=== PATIENT | female | born 1995 | race Caucasian/White ===

== ENCOUNTER 2020-06-29 07:47 | Inpatient (IN) | payer OTHER ==
[~2020-06-29] VITALS: Ht 165.1 cm; Wt 83.9 kg
--- NOTE | 2020-06-29 08:00 | NUR ---
PT BIB SELF C/O L FLANK PAIN R/T LOWER ABDOMEN AND GROIN AREA SINCE THIS MORNING. VS CHECKED. SEEN BY
--- NOTE | 2020-06-29 08:15 | NUR ---
IV ACCESS STARTED ON L AC G18. BLOO DRAW DONE. SENT TO LAB. URINE COLLECTED WELL AND SENT TO LAB
[2020-06-29] MEDS ORDERED: KETOROLAC TROMETHAMINE 15 MG/ML VIAL ONE (08:17)
[2020-06-29] MEDS ORDERED: ONDANSETRON HCL/PF 4 MG/2 ML VIAL ONE (08:22)
[2020-06-29 08:29] LABS: BASOPHILS % (AUTO) 0.2 % (0.0-2.0); EOSINOPHILS % (AUTO) 1.5 % (0.0-6.0); HEMATOCRIT 41 % (33-45); HEMOGLOBIN 13.6 g/dL (11.5-14.8); LYMPHOCYTES # (AUTO) 4.9 /CMM (0.8-4.8); MEAN CORPUSCULAR HGB CONC 33 g/dl (31.0-36.0); MEAN CORPUSCULAR VOLUME 83 fL (82-100); MONOCYTES # (AUTO) 0.9 /CMM (0.1-1.30); MONOCYTES % (AUTO) 6.5 % (2.0-12.0); NEUTROPHILS # (AUTO) 8.3 /CMM (1.8-8.9); NEUTROPHILS % (AUTO) 57.8 % (43.0-81.0); PLATELET COUNT (AUTO) 404 /CMM (150-450); RED BLOOD CELL COUNT(AUTO) 4.91 MIL/uL (4.0-5.2); WHITE BLOOD COUNT (AUTO) 14.4 K/uL (4.3-11.0)
[2020-06-29 08:30] LABS: BILIRUBIN,URINE NEGATIVE (NEGATIVE); BLOOD, URINE LARGE Ery/uL (NEGATIVE); COLOR,URINE YELLOW (YELLOW); LEUKOCYTE ESTERASE ,URINE NEGATIVE (NEGATIVE); NITRITE, URINE NEGATIVE (NEGATIVE); PROTEIN,URINE NEGATIVE (NEGATIVE); UGLUCOSE NEGATIVE (NEGATIVE); UROBILINOGEN,URINE 0.2 EU/dL (0.2)
[2020-06-29] MEDS ORDERED: IV NS 0.9% 1,000 ML BAG IV ONE (08:30)
[2020-06-29] MEDS ORDERED: ONDANSETRON HCL/PF - ER 4 MG/2 ML VIAL IM ONE (08:30)
[2020-06-29] MEDS ORDERED: KETOROLAC TROMETHAMINE INJ 30 MG/ML VIAL IV ONE (08:30)
[2020-06-29 08:35] LABS: BACTERIA,URINE None seen /HPF (None Seen); RBC,URINE TOO NUMEROUS TO COUN /HPF (0-2); SQUAMOUS EPITHELIAL CELL,UR Few /HPF (None Seen); WBC,URINE 0-2 /HPF (0-3)
[2020-06-29 08:39] LABS: CALCIUM, SERUM 8.9 mg/dL (8.5-10.1); CREATININE 0.9 mg/dL (0.6-1.3); POTASSIUM 3.2 mmol/L (3.5-5.1)
[2020-06-29 08:45] LABS: BILIRUBIN,DIRECT 0.1 mg/dL (0.0-0.2); BILIRUBIN,TOTAL 0.4 mg/dL (0.2-1.0); TOTAL PROTEIN, SERUM 7.8 g/dL (6.4-8.2)
--- NOTE | 2020-06-29 11:10 | NUR ---
MOVE SHEET COMPLETED AND CALLED FOR MS BED.
--- NOTE | 2020-06-29 11:14 | NUR ---
CALLED SURGERY BELT WORKER TWILA [phone] [facility] [place].
[2020-06-29] MEDS ORDERED: DESV50TA PO (11:20)
[2020-06-29] MEDS ORDERED: BIRTH CONTROL PILL (11:20)
[2020-06-29] MEDS ORDERED: TOPI25TA PO (11:20)
--- NOTE | 2020-06-29 11:26 | NUR ---
NICCI MATTSON [phone] DR. QUIÑONES SPEAKING WITH [employer] [facility]ERY CONSULT[facility]
[2020-06-29] MEDS ORDERED: PIPERACILLIN /TAZOBACTAM 3.375 G in IV D5W 50 ML IV ONE (11:30)
--- NOTE | 2020-06-29 12:00 | NUR ---
BED 304
--- NOTE | 2020-06-29 12:34 | NUR ---
REPORT GIVE TO NNAMDI ALBRECHT AT [facility].
--- NOTE | 2020-06-29 12:56 | NUR ---
PT COVID NEG. TRANSFERRED TO [facility].
--- NOTE | 2020-06-29 13:00 | NUR ---
RN MS NOTES RECEIVED PATIENT IN STABLE CONDITION VIA GURNEY FROM ED. PT HERE WITH C/O BACK PAIN AND LT SIDE FLANK PAIN STARTED THIS MORNING. ADMINISSION AND ORIENTATION TO ROOM DONE. IV TO RT AC #18G PATENT AND INTACT. VITALS TAKEN AND STABLE. PT IN STABLE CONDITION
[2020-06-29] MEDS ORDERED: Z GUARD REMEDY 2 OZ OINT TP PRN (15:30)
[2020-06-29] MEDS ORDERED: MORPHINE SULFATE INJ 2 MG/ML DISP.SYRIN IV PRN (15:30)
[2020-06-29] MEDS ORDERED: ZOLPIDEM TARTRATE 5 MG TABLET PO PRN (15:30)
[2020-06-29] MEDS ORDERED: ONDANSETRON HCL/PF 4 MG/2 ML VIAL IVP PRN (15:30)
[2020-06-29] MEDS ORDERED: HYDROCODONE/APAP 5/325MG TABLET PO PRN (15:30)
[2020-06-29] MEDS ORDERED: ACETAMINOPHEN 325 MG TABLET PO PRN (15:30)
[2020-06-29] MEDS ORDERED: MAGNESIUM HYDROXIDE 30 ML UDC PO PRN (15:30)
[2020-06-29] MEDS: IV NS 0.9% 1,000 ML IV PRN (16:47)
[2020-06-29] MEDS: PIPERACILLIN /TAZOBACTAM 3.375 G in IV D5W 100 ML IV SCH (18:40)
[2020-06-29 18:54] VITALS: BP 122/81
--- NOTE | 2020-06-29 18:57 | NUR ---
RN MS CLOSING NOTES PT IN BED RESTING COMFORTABLY IN BED. ON RA WITH EVEN UNLABORED BREATHING. NO SIGNS OR C/O SOB NOTED. PT C/O PAIN 08/20 TYLENOL 650 GIVEN. IV TO RT AC #18G PATENT AND INTACT RUNNING NS @75 ML/HR. BED AT LOWEST POSITION AND LOCKED WITH CALL LIGHT WITHIN REACH WILL ENDORSE TO ONCOMING SHIFT.
[2020-06-29] MEDS ORDERED: POTASSIUM CHLORIDE 20 MEQ TAB.PRT.SR PO ONE (19:00)
--- NOTE | 2020-06-29 19:30 | NUR ---
MS RN NOTES RECEIVED ON BED A/O X4,BREATHING REGULAR,AMBULATORY,IVF NS AT 75ML/HR RATE IN PROGRESS ON RIGHT AC SALINE LOCK,VIA IV PUMP.NO S/S OF INFILTRATION NOTED.PAIN TOLERABLE AT THE MOMENT,CALL LIGHT IN REACH,NEEDS ANTICIPATED.
[2020-06-29 20:00] VITALS: BP 133/81
[2020-06-29 20:08] VITALS: BP 133/81
--- NOTE | 2020-06-29 20:30 | NUR ---
MS RN NOTES SEEN BY UROLOGIST DR WHELAN,WILL DISCUSS FINDING WITH CHRISTOFER,RECOMMENDING SURGERY CONSULT FOR EVALUATION NOTED.CHARGE NURSE MOISES MARTE.
--- NOTE | 2020-06-29 22:00 | NUR ---
MS RN NOTES PATIENT WANTS HER ANTI DEPRESSANT MEDICINE.HOSPITALIST KIERRA MADE AWARE,SHE SAID OKAY TO CONTINUE.WILL START TOMORROW MORNING.PATIENT WILL CALL FAMILY MEMBER TO BRING HER [facility].
[2020-06-30] MEDS: PIPERACILLIN /TAZOBACTAM 3.375 G in IV D5W 100 ML IV SCH ×3 (01:47→18:35)
--- NOTE | 2020-06-30 06:39 | NUR ---
MS RN NOTES SLEPT WELL AT NIGHT.HEADACHE IMPROVED,ABDOMINAL PAIN IMPROVED.REMAINS ON CLEAR LIQUID,TILL SEEN FOR SURGICAL EVALUATION.WILL ENDORSE TO DAY NURSE FOR SANTOS.
[2020-06-30 06:40] LABS: BASOPHILS % (AUTO) 0.4 % (0.0-2.0); EOSINOPHILS % (AUTO) 1.4 % (0.0-6.0); HEMATOCRIT 40 % (33-45); HEMOGLOBIN 13.1 g/dL (11.5-14.8); LYMPHOCYTES % (AUTO) 44.7 % (20.0-44.0); MEAN CORPUSCULAR HGB CONC 33 g/dl (31.0-36.0); MEAN CORPUSCULAR VOLUME 84 fL (82-100); MONOCYTES # (AUTO) 0.7 /CMM (0.1-1.30); MONOCYTES % (AUTO) 7.8 % (2.0-12.0); NEUTROPHILS # (AUTO) 4.1 /CMM (1.8-8.9); NEUTROPHILS % (AUTO) 45.7 % (43.0-81.0); PLATELET COUNT (AUTO) 388 /CMM (150-450); RED BLOOD CELL COUNT(AUTO) 4.72 MIL/uL (4.0-5.2)
--- NOTE | 2020-06-30 07:05 | NUR ---
RN OPENING NOTES RECEIVED PT AWAKE IN BED AT THIS TIME. PT AOX4. PT ABLE TO VERBALIZE NEEDS. NO SOB NOTED, NO S/S OF ANY ACUTE DISTRESS NOTED. NO C/O PAIN AT THIS TIME. RESPIRATIONS ARE EVEN AND UNLABORED WITH EQUAL RISE AND FALL IN CHEST. PT IS STABLE ON RA. IV ACCESS NOTED IN RAC G# 20, INTACT, PATENT AND FLUSHING WELL. SAFETY PRECAUTION IN PLACE AND MAINTAINED AT ALL TIMES. BED IN LOWEST LOCKED POSITION, HOB ELEVATED, SIDE RAILS UP X 2, CALL LIGHT AND TABLE WITHIN REACH. WILL CONTINUE TO MONITOR.
[2020-06-30 07:46] LABS: CALCIUM, SERUM 8.7 mg/dL (8.5-10.1); CREATININE 0.7 mg/dL (0.6-1.3); MAGNESIUM 2.3 mg/dL (1.8-2.4); PHOSPHORUS 3.3 mg/dL (2.5-4.9)
[2020-06-30 07:57] VITALS: BP 127/71
[2020-06-30] MEDS: IV NS 0.9% 1,000 ML IV PRN ×2 (08:22→21:31)
[2020-06-30] MEDS: TOPIRAMATE 25 MG TABLET PO SCH ×2 (08:23→16:15)
--- NOTE | 2020-06-30 09:30 | NUR ---
PT C/O SHARP GUARDING LEFT ABD PAIN OF 6/10. VS WNL. PER PATIENT REQUEST NORCO 5-325MG PO Q4HR PRN ADMINISTERED AT THIS TIME PER ORDER. WILL CONTINUE TO MONITOR
--- NOTE | 2020-06-30 10:01 | NUR ---
RECEIVED ORDERS FOR CT ABD/PELVIS WITH CONTRAST FROM DR ALMANZA. ORDERS ENTERED AND CARRIED OUT. CONSENT FOR CT ABD/PELVIS SIGNED BY PATIENT AND FILED IN CHART. WILL CONTINUE WITH PLAN OF CARE
[2020-06-30] MEDS ORDERED: IOHEXOL-300 100 ML VIAL IV ONE (10:50)
[2020-06-30] MEDS ORDERED: IV NS 0.9% 250 ML IV ONE (10:50)
[2020-06-30] MEDS ORDERED: CT SWABBABLE VALVE TRANS SET 1 EA INFUS.SET MC ONE (10:51)
--- NOTE | 2020-06-30 11:09 | NUR ---
PT TRANSPORTED BY WHEEL CHAIR FOR CT ABD/PELVIS WITH CONTRAST BY VERONICA X-RAY TECH, WILL CONTINUE WITH PLAN OF CARE
--- NOTE | 2020-06-30 11:22 | NUR ---
PT TRANSPORTED BY WHEEL CHAIR BACK TO ROOM FROM CT ABD/PELVIS WITH CONTRAST BY VERONICA X-RAY TECH, WILL CONTINUE WITH PLAN OF CARE
--- NOTE | 2020-06-30 11:30 | NUR ---
PT SCHEDULED FOR LAPAROSCOPIC APPENDECTOMY POSSIBLE OPEN/DIAGNOSTIC LAPAROTOMY PROCEDURE. PT SIGNED CONSENT FOR PROCEDURE, CONSENT FOR BLOOD AND CONSENT FOR ANESTHESIA. PRE-OP PROCEDURE CHECKLIST COMPLETED AND FILED IN CHART. WILL CONTINUE TO MONITOR AND CONTINUE WITH PLAN OF CARE
--- NOTE | 2020-06-30 16:09 | NUR ---
SHAHAB AKINS ORDERED CLEAR LIQUID AT THIS TIME. ORDERS CARRIED OUT. WILL CONTINUE TO MONITOR
[2020-06-30 16:10] VITALS: BP 126/79
--- NOTE | 2020-06-30 16:22 | NUR ---
PT C/O OF NAUSEA AT THIS TIME. PER PT REQUEST ZOFRAN 4MG IVP Q6HR PRN FOR NAUSEA/VOMITING ADMINISTERED PER ORDER. WILL CONTINUE TO MONITOR
--- NOTE | 2020-06-30 18:30 | NUR ---
PT'S HOME MEDICATIONS QLAIRA(13PILLS) AND ELIFORE (14PILLS), DELIVERED TO PHARMACY. DR ALMANZA AND ALEJO, CHARGE NURSE MADE AWARE. WILL CONTINUE WITH PLAN OF CARE
--- NOTE | 2020-06-30 18:44 | NUR ---
MS RN CLOSING NOTES PT AWAKE IN BED AT THIS TIME. PT REMAINED STABLE THROUGHOUT SHIFT. ALL CARE, NEEDS, MEDICATION AND TREATMENT ADMINISTERED ANTICIPATED PER ORDER. PAIN MANAGEMENT AND NAUSEA CONTROL ADMINISTERED PER ORDER. SAFETY PRECAUTION IN PLACE AND MAINTAINED AT ALL TIMES. BED IN LOWEST LOCKED POSITION, HOB ELEVATED, SIDE RAILS UP X 2, CALL LIGHT AND TABLE WITHIN REACH. WILL ENDORSE TO PACKAGING SALES REPRESENTATIVE NURSE FOR SANTOS
[2020-06-30 20:00] VITALS: BP 132/82
--- NOTE | 2020-06-30 20:00 | NUR ---
FIRE BATTALION CHIEF: RECEIVED REPORT FROM MARIELA ALBRECHT @ 2756. PT IN BED, AWAKE, A/O X4, ON RA RESPIRATIONS EVEN AND UNLABORED. PT STARTED ON CLEAR LIQUID DIET, ACCDG TO PT SHE TOLERATED IT, NO N/V, BUT SHE DOESN'T LIKE SWEETS OR ARTIFICIAL SWEETENER, SHES SENSITIVE. IV ACCESS PATENT AND FLUSHING WELL, INFUSING WITH NS AT 75ML/HR. DISCUSSED PLAN OF CARE TO PT, PT AGREE AND UNDERSTAND. SAFETY PRECAUTIONS FOR FALL INITIATED, CALL LIGHT IN REACH, WILL MONITOR PT ACCORDINGLY.
[2020-06-30 20:19] VITALS: BP 132/82
--- NOTE | 2020-06-30 21:10 | NUR ---
rn notes: per pt she takes pristiq 50mg (2tablet total of 100mg) po at night only before bedtime. informed md concrete smoother, per md okay to continue medication, order rad back verified and carried out. . relayed to pharmacy stated they will send the said medication and put it in the pt's cassette.
--- NOTE | 2020-06-30 21:12 | NUR ---
RN NOTES: PER PHARMACIST HE WILL ENTER THE ORDER, AND BRING THE MEDICINE, HE IS LEAVING SOON.
[2020-07-01] MEDS: PIPERACILLIN /TAZOBACTAM 3.375 G in IV D5W 100 ML IV SCH ×2 (01:00→11:08)
--- NOTE | 2020-07-01 06:45 | NUR ---
end of shift report: no further complaints noted, pt stated her pain much improved from admission, 08/20 tolerable. iv access patent and flushing well, infusing with ns at 75ml/hr, no s/s of iv infiltration noted. pt tolerated clear liquid diet well, no episode of n/v noted throughout the shift. remains afebrile. no untoward event happened throughout the shift. vs remains stable, needs attended. PLAN OF CARE: awaiting OB-RACKET STRINGER consult, ADAT, continue iv atb and hydration. Safety precautions for fall remains engaged, call light in reach, will endorse to day rn for continuity of care.
[2020-07-01 06:49] LABS: BASOPHILS # (AUTO) 0.1 /CMM (0.0-0.2); BASOPHILS % (AUTO) 0.6 % (0.0-2.0); EOSINOPHILS % (AUTO) 1.7 % (0.0-6.0); HEMATOCRIT 38 % (33-45); HEMOGLOBIN 13.1 g/dL (11.5-14.8); LYMPHOCYTES # (AUTO) 3.3 /CMM (0.8-4.8); LYMPHOCYTES % (AUTO) 36.8 % (20.0-44.0); MEAN CORPUSCULAR HGB CONC 34 g/dl (31.0-36.0); MEAN CORPUSCULAR VOLUME 82 fL (82-100); MONOCYTES # (AUTO) 0.7 /CMM (0.1-1.30); MONOCYTES % (AUTO) 7.8 % (2.0-12.0); NEUTROPHILS # (AUTO) 4.7 /CMM (1.8-8.9); NEUTROPHILS % (AUTO) 53.1 % (43.0-81.0); PLATELET COUNT (AUTO) 384 /CMM (150-450); RED BLOOD CELL COUNT(AUTO) 4.66 MIL/uL (4.0-5.2); WHITE BLOOD COUNT (AUTO) 8.9 K/uL (4.3-11.0)
[2020-07-01 07:11] LABS: CALCIUM, SERUM 8.9 mg/dL (8.5-10.1); CREATININE 0.8 mg/dL (0.6-1.3); MAGNESIUM 2.3 mg/dL (1.8-2.4); PHOSPHORUS 2.9 mg/dL (2.5-4.9); POTASSIUM 3.6 mmol/L (3.5-5.1)
[2020-07-01 07:58] VITALS: BP 126/83
[2020-07-01] MEDS: TOPIRAMATE 25 MG TABLET PO SCH (08:40)
[2020-07-01] MEDS ORDERED: METR500T PO (11:42)
[2020-07-01] MEDS ORDERED: CIPR-262 PO (11:42)
--- NOTE | 2020-07-01 11:45 | NUR ---
C ARCHIE CONFIGURATION MANAGEMENT ADVISOR IN TO SEE PT. DC ORDERS GIVEN.
--- NOTE | 2020-07-01 12:30 | NUR ---
ANDREY SALDIVAR IN PROGRESS.
--- NOTE | 2020-07-01 16:00 | NUR ---
GARETT AKINS RENTAL REPRESENTATIVE IN TO SEE PT.
[2020-07-01 16:03] VITALS: BP 120/80
--- NOTE | 2020-07-01 16:20 | NUR ---
DC INSTRUCTIONS GIVEN. HEP LOCK REMOVED.HAS RXS.VERB. UNDERSTANDING OF ALL INSTRUCTIONS.BELONGING SHEET SIGNED.[facility] CALLED FOR TRANSPORT HOME BY PT. TAKEN TO LOBBY VIA W/C ACCOMPANIED BY FUR CUTTING MACHINE OPERATOR.PT. HAS ALL REPORTS.TO FOLLOW UP WITH OB,DRY MILL OPERATOR MD WELL GROUT WORKER.
[2020-07-01] MEDS ORDERED: [UNRECOGNIZED DRUG - OTHER] PO SCH (21:00)
== END 2020-07-01 16:25 | disposition home or self-care (01) | DRG 394 ==
LOC: ER 07:50 → MED 12:26
PROVIDERS: ADMIT Nurse Practitioner Acute Care; ATTEND Nurse Practitioner Acute Care
DX: K35.80 Unspecified acute appendicitis (principal); N20.1 Calculus of ureter; F32.9 Major depressive disorder, single episode, unspecified; F41.9 Anxiety disorder, unspecified; E28.2 Polycystic ovarian syndrome; I87.8 Other specified disorders of veins; D72.829 Elevated white blood cell count, unspecified; N80.9 Endometriosis, unspecified
CPT/HCPCS: 36415; 80048-TC; 80061-TC; 80076-TC; 81001; 82962-TC; 83605-TC; 83690-TC; 83735-TC; 84100-TC; 84703-TC; 85025-TC; 85610-TC; 86850-TC; 87040-TC; 87081-TC; 87086-TC; G0378; J1885; J2405; J2543; J7030; J7050; J7060; Q9967